=== PATIENT | female | born 1970 | race Caucasian/White ===

== ENCOUNTER → 2018-05-12 | Outpatient (CLI) | payer BC ==
[~2018-05-12] MED LIST: BRET2.5 PO; CEPHALEXIN250 M1 PO; DHA; FERROUS SU325 MG/TAB PO; PRENATAL VITAMI1 TA5 PO
== END ==
LOC: MC.RAD 16:07
DX: Z12.31 Encounter for screening mammogram for malignant neoplasm of breast (principal); R92.0 Mammographic microcalcification found on diagnostic imaging of breast

== ENCOUNTER → 2018-05-18 | Outpatient (CLI) | payer BC | LOC: MC.RAD 12:44 | DX: R92.2 Inconclusive mammogram (principal) | CPT/HCPCS: G0279 ==

== ENCOUNTER → 2018-05-25 | Outpatient (CLI) | payer BC | LOC: MC.RAD 05-23 08:30 | DX: N63.20 Unspecified lump in the left breast, unspecified quadrant (principal); Z98.82 Breast implant status ==

== ENCOUNTER 2018-06-08 06:35 | Day surgery (SDC) | payer BC ==
[~2018-06-08] VITALS: Ht 162.6 cm; Wt 72.3 kg
[2018-06-08] MEDS ORDERED: LEXAPRO 10MG10 MG PO (08:06)
[2018-06-08 08:40] VITALS: BP 105/67; PULSE 64; TEMP 97.9
[2018-06-08 12:35] VITALS: BP 111/51; PULSE 70
[2018-06-08 12:50] VITALS: BP 106/50; PULSE 62
[2018-06-08] MEDS ORDERED: ULTRAM 50MG TAB50 MG PO (12:53)
[2018-06-08 13:05] VITALS: BP 103/50; PULSE 57
[2018-06-08 13:20] VITALS: BP 96/74; PULSE 68
[2018-06-08 13:35] VITALS: BP 95/62; PULSE 66
== END 2018-06-08 13:55 | disposition home or self-care (01) ==
LOC: SDCO 06:35
DX: D05.12 Intraductal carcinoma in situ of left breast (principal); K21.9 Gastro-esophageal reflux disease without esophagitis; F32.9 Major depressive disorder, single episode, unspecified; N30.10 Interstitial cystitis (chronic) without hematuria; Z88.8 Allergy status to other drugs, medicaments and biological substances; F41.9 Anxiety disorder, unspecified; Z80.3 Family history of malignant neoplasm of breast; Z82.49 Family history of ischemic heart disease and other diseases of the circulatory system; Z80.7 Family history of other malignant neoplasms of lymphoid, hematopoietic and related tissues; Z80.8 Family history of malignant neoplasm of other organs or systems; Z80.0 Family history of malignant neoplasm of digestive organs; Z83.3 Family history of diabetes mellitus
CPT/HCPCS: J0690; J1885; J2704; J3010; J7120

== ENCOUNTER 2018-06-21 12:50 | Day surgery (SDC) | payer BC ==
[~2018-06-21] VITALS: Ht 162.6 cm; Wt 71.6 kg
[~2018-06-21 12:50] MED LIST changes: +LEXAPRO 10MG10 MG PO; +ULTRAM 50MG TAB50 MG PO
[2018-06-21 13:31] VITALS: BP 110/64; PULSE 76; TEMP 98.4
[2018-06-21] MEDS ORDERED: TYLENOL 500MG500 MG PO (13:38)
[2018-06-21 15:50] VITALS: BP 122/72; PULSE 62; TEMP 98
[2018-06-21 16:05] VITALS: BP 131/61; PULSE 55
[2018-06-21 16:20] VITALS: BP 117/60; PULSE 54
[2018-06-21 16:35] VITALS: BP 121/60; PULSE 61
== END 2018-06-21 17:23 | disposition home or self-care (01) ==
LOC: SDCO 12:50
DX: D05.12 Intraductal carcinoma in situ of left breast (principal); K21.9 Gastro-esophageal reflux disease without esophagitis; N30.10 Interstitial cystitis (chronic) without hematuria; F32.9 Major depressive disorder, single episode, unspecified; Z87.442 Personal history of urinary calculi; Z79.899 Other long term (current) drug therapy; Z80.0 Family history of malignant neoplasm of digestive organs
CPT/HCPCS: J0690; J2704; J3010; J7120

== ENCOUNTER 2018-08-05 19:21 | Emergency (ER) | payer BC ==
[~2018-08-05] VITALS: Ht 162.6 cm; Wt 68.2 kg
[~2018-08-05 19:21] MED LIST changes: +TYLENOL 500MG500 MG PO
[2018-08-05 19:26] VITALS: TEMP 99.3
[2018-08-05 20:33] LABS: BASO # 0.1 (0.0-0.2); BASO % 0.5 % (0.0-2.0); EOS # 0.1 (0.0-0.7); EOS % 0.3 % (0-4.0); GRAN # 12.8 (1.4-6.5); GRAN % 81.3 % (42.2-75.2); HEMATOCRIT 38.2 % (37.0-47.0); HEMOGLOBIN 12.7 g/dl (12.5-16.0); LYMPH # 1.8 (1.2-3.4); LYMPH % 11.1 % (20.0-51.0); MEAN CELL VOLUME 84 fl (80.0-100.0); MEAN CORPUSCULAR HEMOGLOBIN 28 pg (27.0-31.0); MEAN CORPUSCULAR HGB CONC 33 g/dl (33.0-37.0); MEAN PLATELET VOLUME 8.5 fl (7.4-10.4); MONO # 0.8 (0.1-0.6); MONO % 4.8 % (1.7-9.3); PLATELET COUNT 157 K/mm3 (130-400); RED BLOOD COUNT 4.54 M/mm3 (4.10-5.30); REDCELL DISTRIBUTION WIDTH-CV 13.3 % (11.5-14.5)
[2018-08-05 20:45] LABS: BILIRUBIN,TOTAL 0.4 mg/dL (0.0-1.0); C-REACTIVE PROTEIN 6.3 mg/dL (0.0-0.9); CALCIUM 9.4 mg/dL (8.4-10.2); CREATININE, serum 0.65 mg/dL (0.52-1.25); POTASSIUM 3.5 mmol/L (3.4-5.0); TOTAL PROTEIN 7.5 gm/dL (6.4-8.2)
[2018-08-05] MEDS ORDERED: OMNICEF 300MG300 MG PO (21:28)
[2018-08-05 21:45] VITALS: BP 110/68; PULSE 88
== END 2018-08-05 21:45 | disposition home or self-care (01) ==
LOC: COL.ER 19:21
PROVIDERS: Emergency Medicine
DX: J06.9 Acute upper respiratory infection, unspecified (principal); J01.90 Acute sinusitis, unspecified; C50.919 Malignant neoplasm of unspecified site of unspecified female breast; F32.9 Major depressive disorder, single episode, unspecified
CPT/HCPCS: J7030

== ENCOUNTER 2018-10-05 00:02 | Emergency (ER) | payer BC ==
[~2018-10-05] VITALS: Ht 162.6 cm; Wt 68.2 kg
[~2018-10-05 00:02] MED LIST changes: +OMNICEF 300MG300 MG PO
[2018-10-05 00:27] VITALS: BP 120/58; TEMP 99.1
[2018-10-05 00:46] LABS: COLLECTION METHOD CLEAN CATCH
[2018-10-05 01:04] LABS: PH 9 (5-8); SQUAMOUS EPITHELIAL None Seen /hpf; URINE APPEARANCE Clear; URINE BACTERIA None Seen /hpf; URINE BILIRUBIN Negative (NEGATIVE); URINE BLOOD 2+ (NEGATIVE); URINE COLOR Straw; URINE GLUCOSE Negative (NEGATIVE); URINE KETONE Negative (NEGATIVE); URINE LEUKOCYTE ESTERASE 1+ (NEGATIVE); URINE NITRATE Negative (NEGATIVE); URINE PROTEIN(semi-quant) Negative (NEGATIVE); URINE UROBILINOGEN Negative (NEGATIVE)
[2018-10-05] MEDS ORDERED: BACTRIM DS 8001 TAB PO ×2 (02:30→03:04)
[2018-10-05 03:06] VITALS: PULSE 71
== END 2018-10-05 03:06 | disposition home or self-care (01) ==
LOC: COL.ER 00:02
PROVIDERS: Emergency Medicine
DX: N39.0 Urinary tract infection, site not specified (principal); C50.919 Malignant neoplasm of unspecified site of unspecified female breast; Z87.442 Personal history of urinary calculi

== ENCOUNTER → 2019-06-19 | Outpatient (CLI) | payer BC ==
[~2019-06-19] MED LIST changes: +BACTRIM DS 8001 TAB PO
== END ==
LOC: COL.VAS 06-16 12:30
DX: Z51.11 Encounter for antineoplastic chemotherapy (principal); I08.1 Rheumatic disorders of both mitral and tricuspid valves